=== PATIENT | male | born 1980 | race Caucasian/White ===

== ENCOUNTER 2021-07-08 10:08 | Outpatient (REF) | payer OTHER, SELFPAY ==
[2021-07-08 12:19] LABS: Alanine Aminotransferase 46 U/L (0-40); Albumin Level 4.5 g/dL (3.5-5.0); Alkaline Phosphatase 87 U/L (39-117); Aspartate Amino Transferase 69 U/L (5-37); Bilirubin Direct 0.3 mg/dL (0.0-0.5); Bilirubin Total 0.8 mg/dL (0.0-1.0); Total Protein 7.2 g/dL (6.5-8.0)
== END 2021-07-08 10:09 | disposition home or self-care (01) ==
LOC: HO.MANLDS 10:08
PROVIDERS: PCP Internal Medicine; Visit Provider Internal Medicine
DX: R74.01 Elevation of levels of liver transaminase levels (principal)
CPT/HCPCS: 36415; 80076

== ENCOUNTER 2024-08-23 15:13 | Outpatient (REF) | payer MEDICAID, SELFPAY ==
--- OUTSIDE RECORDS SUMMARY | 2024-08-23 17:34 | XMS_ITS | Continuity of Care Document ---
Author Organization [place] - [facility], [facility] Address [address] [place] [address] [place] [address] Assessment Encounter Date Assessment Date Assessment LastModified by Organization Details LastModified Time 08/23/2024 08/23/2024 [id number] [place] [id number] (DIRECTOR CLIENT) MDM MODERATE MUST MEET 2 OUT OF 3 ELEMENTS: PROBLEMS, DATA OR RISK ELEMENT 1: PROBLEMS ADDRESSED 1 OR MORE CHRONIC ILLNESS WITH EXACERBATION OR 2 OR MORE STABLE CHRONIC ILLNESSES OR 1 UNDIAGNOSED NEW PROBLEM OR 1 ACUTE ILLNESS W/SYMPTOMS OR 1 ACUTE COMPLICATED INJURY ELEMENT 2: DATA MUST MEET 1 OF 3 CATEGORIES CATEGORY 1: REVIEW OF PRIOR EXTERNAL NOTES, REVIEW OF RESULTS, ORDERING OF EACH TEST, ASSESSMENT REQUIRING INDEPENDENT HISTORIAN OR CATEGORY 2: INDEPENDENT INTERPRETATION OF TESTS BY ANOTHER PHYSICIAN OR SPECIALIST OR CATEGORY 3: DISCUSSION OF MGT OR TEST INTERPRETATION W/EXTERNAL PHYSICIAN OR SPECIALIST ELEMENT 3: RISK RISK OF COMPLICATIONS AND/OR MORBIDITY OR MORTALITY OF PATIENT MANAGEMENT PROVIDER MUST THOROUGHLY DOCUMENT EACH ELEMENT THAT IS COVERED [email or web address] Not available 08/23/2024 15:07:23 Plan of Treatment Reminders Order Date Submit Date Provider Last Modified By Organization Details Last Modified Time Details Appointments NEW PROBLEM 15 2024 02:45P M DR LEUNG Not available Not available Not available Lab celiac disease comprehen sive panel, serum 2024 025 [facility], [address] [place] [address], [place], [address], 08/23/2024 15:10:51 Referral None recorded. Procedures None recorded. Surgeries None recorded. Imaging None recorded. Medication Orders None recorded. Patient TargetsNo targets recorded. Patient InstructionsNo instructions recorded. Reason for Referral None Reported. Problems Name Problem SNOMED Code Status Onset Date Resolution Date Notes Provider Name and Address Organization Details Recorded Time Melanocy tic nevus of skin 370449433 [facility] 08[facility]:59 Psoriasi s 6073246 Active 2017 [facility] 08:33:06 Seborrhe ic dermatit is 15894278 Active 2017 [facility] 08:33:17 Myopia 23205649 Active 2017 wears correctiv e lenses [facility] 8 08:33:49 Splenome barry 34646568 Active 2017 [facility] 08:33:58 Polycyth emia vera (clinica l) 438761547 Active 2017 [facility] 08:34:24 Hypercho lesterol emia 07208690 Active 2017 [facility] 08:34:30 Non-alco holic fatty liver 845415160 Active 2017 elevated alt [facility] 8 08:34:44 Periodic limb movement disorder 139648869 Active 2017 [facility] 8 08:34:57 Anxiety 32761985 Active 2017 [facility] 8 08:35:02 Hidraden itis suppurat bill 54793463 Active 2017 [facility] 8 08:35:11 Liver enzymes level above referenc e range 018450258 Active 2021 Brendan Leung DO [address] [place] [address], [phone], [facility] 2 09:04:20 Gluten intolera nce Active 2024 Brendan Leung DO [address] [place] [address], [phone], [facility] 5 15:09:05 Problem Notes None recorded. Medical Equipment None Reported. Allergies No known drug allergies Medications Name Sig Start Date Stop Date Status Note LastModified by Organization Details LastModified Time ketoconazol e 2 % shampoo APPLY TO THE AFFECTED AREA(S), LATHER, LEAVE IN PLACE FOR 5 MINUTES, AND THEN RINSE OFF WITH WATER BY TOPICAL ROUTE twice a week active Not Available Not Available No t Available fluocinonid e 0.05 % topical gel APPLY TOPICALLY TO THE SCALP TWICE DAILY active Not Available Not Available No t Available cefadroxil 500 mg capsule 09/29 completed Not Available Not Available Not Available meloxicam 7.5 mg tablet 01/13 completed Not Available Not Available Not Available methocarbam ol 750 mg tablet Take by oral route for 5 days. 01/13 completed Not Available Not Available Not Available clindamycin 1 % topical gel APPLY TOPICALLY TO FACE 1 TO 2 TIMES DAILY 2020 active Not Available Not Available Not Avai lable betamethaso ne valerate 0.1 % topical cream APPLY 1 APPLICATI ON TOPICALLY TO ARMPITS AND BUTTOCKS TWICE DAILY NEEDED NOT TO EXCEED 2 WEEKS AT A TIME active Not Available Not Available No t Available erythromyci n 5 mg/gram (0.5 %) eye ointment APPLY 1/2 INCH INSIDE LOWER EYELID OF RIGHT EYE FOUR TIMES DAILY FOR 7 DAYS 04/11 completed Not Available Not Available Not Available neomycin-po lymyxin-hyd rocort 3.5 mg-10,000 unit/mL-1 % ear drops,susp SHAKE LIQUID AND INSTILL 4 DROPS TO LEFT EAR FOUR TIMES DAILY FOR 7 DAYS active Not Available Not Available No t Available fluocinolon e 0.01 % scalp oil and shower cap APPLY TO DAMP SCALP EVERY NIGHT AT BEDTIME NEEDED WASH OUT IN AM MAY USE ON EARS active Not Available Not Available No t Available Vitals Date Recorded Body height Body mass index (BMI) Body weight Oxygen saturation Oxygen saturation in Arterial blood by Pulse oximetry Heart rate Systolic blood pressure Diastolic blood pressure Provider Name and Address Organization Details Last Updated DateTime 5 180.34 cm 24.3 kg/m2 50578.0 7 g 98 % 98 % 74 /min 122 mm[Hg] 70 mm[Hg] Sharon Azar [facility] 5 14:48:00 Social History Question Answer Notes LastModified by Organizat ion Details LastModified Time Tobacco Smoking Status Never Smoker Not Available [facility] 01/16/2020 03:36:23 What Is Your Level Of Caffeine Consumption? Occasional 1 Cup Per Day [id number] Information not available 01/16/2020 What Was The Date Of Your Most Recent Tobacco Screening? 08/23/2024 [email or web address] Information not available 08/23/2024 Sex: Unknown Functional Status Question Answer Note LastModified by Organizat ion Details LastModified Time Do you or have you ever used any other forms of tobacco or nicotine? No [email or web address] Information not available 09/29/2022 What is your level of alcohol consumption? Occasional [id number] Information not available 01/16/2020 What is your exercise level? None [id number] Information not available 01/16/2020 Mental Status None recorded. Family History Nothing Reported. Medical History No medical history recorded. Immunizations Vaccine Type Date Status Note Provider Nam e and Address Organization Details Recorded Time Influenza, split virus, quadrivalent, preservative 1 completed Not Available [facility] 09/24/2022 18:01:20 COVID-19 vaccine, vector-nr, rS-Ad26, PF, 0.5 mL 1 completed Not Available [facility] 09/24/2022 18:01:20 Past Encounters Encounter ID Performer Location Encounter Start Date Encounter Closed Date Diagnosis/Indication Diagnosis SNOMED-CT Code Diagnosis ICD10 Code Diagnosis Note [id number] DO [facility] [address] [address] 08/23/2024 14:32:28 08/23/2024 15:36:34 Hypercholesterolemia 11752789 E78.00 LDL is still sl elevated at 138 (150) but is better from last at 170 Depression screening 171 055592 Z13.31 Psoriasis 3783893 L40.9 ongoing issue but is under control Polycythem ia vera (clinical) 665427912 D45 we will rechk the cbc ;. Hidradenit is suppurativa 09921519 L73.2 offered treatment but he feels he is on the mend will hold tx Gluten intolerance 05988 64313 K90.41 affecting his scalp and is quite irritatedw ill chk as gluten Health Concerns Section Related Observation LastModified by Organization Detai ls LastModified Time None Recorded Concern Status LastModified by Organization Details LastModified Time None Recorded Payers Encounter Date Sequence Insurance Name Policy Number Policy Houser Covered Member ID Houser Member ID Guarantor Name 08/23/2024 1 [facility] [place] Raul Diop [id number] Raul Diop Notes Date Note Type Note Provider Name and Address Organization Details Recorded Time 08/24/19 25 text/htm l has been having a lot of pain in his hands and stiffness notedthis past o has been afflicted by the hidradentitis in the groin as of late Brendan Leung DO [address] [place] [address], [phone], [facility] 08/23/2024 15:12:43 08/24/19 25 text/htm l Care Management - HyperlipidemiaReported bypatient.Control:usually well controlled; improving; at goal Complications:no coronary artery disease; no heart attack; no cardiovascular disease; no pancreatitis; no strokeNotes:his hidradentitis has been a problemGeneral Rash/Skin LesionReported bypatient.Quality:no itchy; not painful Context:no new detergents or skin products; no one else with similar rash Aggravating factors:nothing makes it worse Associated Symptoms:no fever; no cold symptoms; no nausea; no vomiting; no diarrhea; no urinary symptoms Brendan Leung DO [address] [place] [address], [phone], [facility] 08/23/2024 15:12:43
[2024-08-24 21:53] LABS: Immunoglobulin A 143 mg/dL (47-310); Transglutaminase IgA <1.0 U/mL
== END 2024-08-23 15:14 | disposition home or self-care (01) ==
LOC: HO.MANLDS 15:13
PROVIDERS: Visit Provider Internal Medicine
DX: K90.41 Non-celiac gluten sensitivity (principal)
CPT/HCPCS: 36415; 82784; 86364